=== PATIENT | female | born 1965 | race Caucasian/White ===

== ENCOUNTER 2016-10-28 09:41 | Day surgery (SDC) | payer BC ==
[2016-10-28] MEDS ORDERED: D5 LR 1000 ML 1,000 ML IV ONE (10:14)
[2016-10-28] MEDS ORDERED: DIPRIVAN VIAL 20 ML ONE (11:50)
[2016-10-28 14:29] VITALS: BP 123/67
== END 2016-10-28 12:25 | disposition home or self-care (01) ==
LOC: SURG1 09:41
PROVIDERS: ATTEND Internal Medicine Gastroenterology
PROC: 0DB68ZX Excision of Stomach, Via Natural or Artificial Opening Endoscopic, Diagnostic (ICD-10-PCS; principal; 2016-10-28 13:45)
PROC: 0DJ08ZZ Inspection of Upper Intestinal Tract, Via Natural or Artificial Opening Endoscopic (ICD-10-PCS; principal; 2016-10-28 13:45)
PROC: 0DB88ZX Excision of Small Intestine, Via Natural or Artificial Opening Endoscopic, Diagnostic (ICD-10-PCS; principal; 2016-10-28 13:45)
DX: D50.8 Other iron deficiency anemias (principal); K21.9 Gastro-esophageal reflux disease without esophagitis; R10.13 Epigastric pain; K31.7 Polyp of stomach and duodenum; K29.60 Other gastritis without bleeding; K20.8 Other esophagitis
CPT/HCPCS: A4217; J3490; J7120

== ENCOUNTER 2016-11-04 09:39 | Day surgery (SDC) | payer BC ==
[2016-11-04] MEDS ORDERED: D5 LR 1000 ML 1,000 ML IV ONE (09:46)
[2016-11-04] MEDS ORDERED: DIPRIVAN VIAL 20 ML ONE (10:49)
[2016-11-04 11:44] VITALS: BP 120/72
== END 2016-11-04 11:45 | disposition home or self-care (01) ==
LOC: SURG1 09:39
PROVIDERS: ATTEND Internal Medicine Gastroenterology
PROC: 0DBM8ZX Excision of Descending Colon, Via Natural or Artificial Opening Endoscopic, Diagnostic (ICD-10-PCS; principal; 2016-11-04 12:00)
PROC: 0DJD8ZZ Inspection of Lower Intestinal Tract, Via Natural or Artificial Opening Endoscopic (ICD-10-PCS; principal; 2016-11-04 12:00)
DX: Z12.11 Encounter for screening for malignant neoplasm of colon (principal); D50.8 Other iron deficiency anemias; K63.5 Polyp of colon; K64.8 Other hemorrhoids; K57.30 Diverticulosis of large intestine without perforation or abscess without bleeding
CPT/HCPCS: A4217; J3490; J7120